=== PATIENT | male | born 1955 | race Two or more races ===

== ENCOUNTER 2017-11-25 18:35 | Emergency (ER) | payer MEDICAID ==
[~2017-11-25] VITALS: Ht 175.3 cm; Wt 101.6 kg
[2017-11-25] MEDS ORDERED: HYDROcodone-ACET 5/325MG TAB PO ONE (21:00)
[2017-11-25] MEDS ORDERED: KETOROLAC TROMETH 60MG/2ML VIAL IM ONE (21:15)
[2017-11-25] MEDS ORDERED: COLCHICINE 0.6 MG CAP PO ONE (21:15)
[2017-11-25 21:32] VITALS: BP 183/101
[2017-11-25] MEDS ORDERED: LIDOCAINE 1% HCL (LOCAL ANESTH.) INJ 20ML MDV ONE (22:23)
[2017-11-25] MEDS ORDERED: ONDANSETRON HCL 4 MG/2 ML VIAL IV ONE (22:30)
[2017-11-25] MEDS ORDERED: HYDROmorphone HCL 2 MG/ML VL IV ONE (22:30)
[2017-11-25] MEDS ORDERED: NEOMYCIN-BACITRACIN-POLYM 15GM TOP OINT TOP ONE (22:57)
[2017-11-25] MEDS ORDERED: NEOMYCIN-BACITRACIN-POLYM UNITDOSE PKG TOP OINT TOP ONE (23:15)
[2017-11-25] MEDS ORDERED: LIDOCAINE 1% HCL (LOCAL ANESTH.) INJ 20ML MDV IJ ONE (23:15)
== END 2017-11-25 23:19 | disposition home or self-care (01) ==
LOC: ER 18:39
DX: M25.462 Effusion, left knee (principal); M25.461 Effusion, right knee; M10.9 Gout, unspecified; M65.9 Synovitis and tenosynovitis, unspecified
CPT/HCPCS: 20610; 36415; 73700; 83986; 84550; 87205; 89051; 96372; 96374; 96375; 99285; J1170; J1885; J2001; J2405

== ENCOUNTER 2017-11-30 11:21 | Emergency (ER) | payer MEDICAID ==
[~2017-11-30] VITALS: Ht 175.3 cm; Wt 101.2 kg
[2017-11-30 13:37] VITALS: BP 141/78
[2017-11-30] MEDS ORDERED: KETOROLAC TROMETH 60MG/2ML VIAL IM ONE (14:00)
[2017-11-30] MEDS ORDERED: HYDROcodone-ACET 10/325MG TAB PO ONE (14:00)
== END 2017-11-30 14:23 | disposition home or self-care (01) ==
LOC: ER 11:26
DX: M10.9 Gout, unspecified (principal); E78.5 Hyperlipidemia, unspecified; I10 Essential (primary) hypertension
CPT/HCPCS: 96372; 99283; J1885

== ENCOUNTER 2017-12-11 12:39 | Emergency (ER) | payer MEDICAID ==
[~2017-12-11] VITALS: Ht 175.3 cm; Wt 99.8 kg
[2017-12-11 14:01] LABS: Basophils # (auto) 0 uL; Basophils % (auto) 0.4 % (0.0-2.0); Eosinophils # (auto) 0.1 uL; Eosinophils % (auto) 0.8 % (0.0-7.0); Hematocrit 40.8 % (41.0-53.0); Hemoglobin 13.5 g/dL (13.5-17.5); Lymphocytes # (auto) 1.7 uL; Lymphocytes % (auto) 18.7 % (10.0-50.0); Mean Corpuscular Hemoglobin 27.8 pg (28.0-32.0); Mean Corpuscular Hgb Conc. 33.2 g/dL (32.0-36.0); Mean Corpuscular Volume 83.9 fL (80.0-100.0); Monocytes # (auto) 0.8 uL; Monocytes % (auto) 9.3 % (0.0-12.0); Neutrophils # (auto) 6.4 uL; Neutrophils % (auto) 70.8 % (37.0-80.0); Platelet Count (auto) 427 10^3/uL (140-450); Red Blood Cells 4.86 10^6/uL (4.5-5.90); Red Cell Distribution Width 16.8 % (11.8-14.3); White Blood Cell 9.1 10^3/uL (4.4-10.8)
[2017-12-11 14:17] LABS: Albumin 3.3 g/dL (3.4-5.0); Calcium 8.7 mg/dL (8.5-10.1); Magnesium 1.9 mg/dL (1.6-2.6); Potassium 3.8 mmol/L (3.5-5.1)
[2017-12-11 14:20] LABS: BUN/Creatinine Ratio 16.8
[2017-12-11 14:22] LABS: Bilirubin, Total 0.7 mg/dL (0.2-1.0); Total Protein 7.5 g/dL (6.4-8.2)
[2017-12-11 14:28] LABS: Urine Bacteria NONE SEEN /hpf (None Seen); Urine Blood Negative /uL (Negative); Urine Hyaline Cast MANY /lpf (0 - 2); Urine Mucus FEW (None Seen); Urine Specific Gravity 1.025 (1.001-1.035); Urine WBC 6 /hpf (0 - 3)
[2017-12-11] MEDS ORDERED: KETOROLAC TROMETH 60MG/2ML VIAL IM ONE ×2 (17:45)
[2017-12-12 20:58] LABS: Uric Acid 4.3 mg/dL (3.5-7.2)
== END 2017-12-11 17:56 | disposition home or self-care (01) ==
LOC: ER 12:39
DX: M10.9 Gout, unspecified (principal); E78.5 Hyperlipidemia, unspecified; I10 Essential (primary) hypertension; Z86.73 Personal history of transient ischemic attack (TIA), and cerebral infarction without residual deficits
CPT/HCPCS: 36415; 80053; 81001; 83735; 84550; 85025; 96372; 99284; J1885

== ENCOUNTER 2017-12-14 07:15 | Emergency (ER) | payer MEDICAID ==
[~2017-12-14] VITALS: Ht 175.3 cm; Wt 101.2 kg
[2017-12-14 07:41] VITALS: BP 122/61
[2017-12-14] MEDS: KETOROLAC TROMETH 60MG/2ML VIAL IM ONE (08:25)
[2017-12-14] MEDS: methylPREDNISolone SOD SUCC 125 MG/2 ML VL IM ONE (08:26)
== END 2017-12-14 08:59 | disposition home or self-care (01) ==
LOC: ER 07:18
DX: M10.062 Idiopathic gout, left knee (principal); M10.061 Idiopathic gout, right knee; E78.5 Hyperlipidemia, unspecified; I10 Essential (primary) hypertension; Z86.73 Personal history of transient ischemic attack (TIA), and cerebral infarction without residual deficits
CPT/HCPCS: 96372; 99284; J1885; J2930

== ENCOUNTER 2017-12-19 09:09 | Emergency (ER) | payer MEDICAID ==
[~2017-12-19] VITALS: Ht 172.7 cm; Wt 98.9 kg
[2017-12-19] MEDS ORDERED: cloNIDine HCL 0.1 MG TAB PO ONE (09:30)
[2017-12-19 10:02] VITALS: BP 186/123
== END 2017-12-19 10:16 | disposition home or self-care (01) ==
LOC: ER 09:09
DX: I10 Essential (primary) hypertension (principal); M10.9 Gout, unspecified; E78.5 Hyperlipidemia, unspecified; Z86.73 Personal history of transient ischemic attack (TIA), and cerebral infarction without residual deficits; Z76.0 Encounter for issue of repeat prescription

== ENCOUNTER 2018-04-03 10:59 | Emergency (ER) | payer MEDICAID ==
[~2018-04-03] VITALS: Ht 175.3 cm; Wt 99.8 kg
[2018-04-03 14:07] VITALS: BP 147/99
== END 2018-04-03 15:02 | disposition home or self-care (01) ==
LOC: ER 11:05
DX: M10.9 Gout, unspecified (principal); E78.5 Hyperlipidemia, unspecified; I10 Essential (primary) hypertension; Z76.0 Encounter for issue of repeat prescription; Z86.73 Personal history of transient ischemic attack (TIA), and cerebral infarction without residual deficits